=== PATIENT | male | born 1980 | race Caucasian/White ===

== ENCOUNTER 2024-02-02 09:07 | Emergency (ER) | payer SELFPAY ==
[~2024-02-02] VITALS: Ht 180.3 cm; Wt 99.5 kg
[2024-02-02 10:50] LABS: BASOPHILS % (AUTO) 0.3 % (0-1); EOSINOPHILS # (AUTO) 0.1 X10'3 (0-0.9); HEMATOCRIT 50.3 % (42.0-52.0); HEMOGLOBIN 17.3 g/dl (14.0-17.9); LYMPHOCYTES # (AUTO) 1.5 X10'3 (1.1-4.8); MEAN CORPUSCULAR HEMOGLOBIN 30.7 PG (27.0-31.0); MEAN CORPUSCULAR HGB CONC 34.4 g/dL (33.0-36.5); MEAN CORPUSCULAR VOLUME 89.4 FL (78-98); MEAN PLATELET VOLUME 9.7 FL (7.4-10.4); MONOCYTES # (AUTO) 1.1 X10'3 (0-0.9); MONOCYTES % (AUTO) 11.7 % (2-12); PLATELET COUNT 139 X10'3 (140-440); RED BLOOD COUNT 5.62 X10'6 (4.70-6.10); RED CELL DISTRIBUTION WIDTH 13.4 % (11.5-14.5); WHITE BLOOD COUNT 9.7 X10'3 (4.5-11.0)
[2024-02-02 10:56] LABS: BILIRUBIN,URINE SMALL (Neg); CLARITY,URINE SLIGHTLY CLOUDY (Clear); COLOR,URINE YELLOW (Yellow); GLUCOSE, URINE NEGATIVE (Neg); KETONES,URINE 15 mg/dl (Neg); LEUKOCYTE ESTERASE ,URINE NEGATIVE (Neg); NITRITES, URINE NEGATIVE (Neg); OCCULT BLOOD,URINE SMALL (Neg); PROTEIN,URINE 30 mg/dl (Neg); UROBILINOGEN,URINE 0.2 E.U/dL (0.2-1.0)
[2024-02-02 11:05] LABS: UA COLLECTION TYPE VOIDED
[2024-02-02 11:06] LABS: MUCUS STRANDS MANY /LPF (Neg); SQUAMOUS EPITHELIAL CELL,UR NONE SEEN /LPF (FEW); WBC,URINE 0-4 /HPF (0-4)
[2024-02-02 11:07] LABS: BACTERIA,URINE NONE SEEN /HPF (Neg); RBC,URINE 0-2 /HPF (0-2)
[2024-02-02 11:10] LABS: ALANINE AMINOTRANSFERASE 44 U/L (12-78); ALBUMIN 3.7 G/DL (3.4-5.0); ALBUMIN/GLOBULIN RATIO 0.9 (1.1-1.5); ALKALINE PHOSPHATASE 79 IU/L (46-116); ANION GAP 9 (8-16); ASPARTATE AMINO TRANSFERASE 33 U/L (10-37); BILIRUBIN,TOTAL 0.4 MG/DL (0.1-1.0); BLOOD UREA NITROGEN 12 MG/DL (7-18); BUN/CREATININE RATIO 9.4 (10.0-20.0); CALCIUM 8.9 MG/DL (8.5-10.1); CHLORIDE 103 MMOL/L (99-107); CREATININE 1.28 MG/DL (0.60-1.10); GLUCOSE 117 MG/DL (70-104); POTASSIUM 3.8 MMOL/L (3.5-5.1); SODIUM 139 MMOL/L (135-145); TOTAL CARBON DIOXIDE 26.8 MMOL/L (24-32); eCRCL 81 ML/MIN; eGFR 62 ML/MIN
[2024-02-02] MEDS ORDERED: iohexol 300mg/ml 100ml inj. ONE (11:24)
[2024-02-02] MEDS: normal saline 1000ML IV soln IVB ONE (11:52)
[2024-02-02] MEDS: normal saline 1000ml 1,000 ML IV ONE (13:03)
[2024-02-02 13:22] LABS: C DIFF SPECIMEN=DIARRHEA? ACCEPTABLE
[2024-02-02 13:24] LABS: C DIFF ANTIGEN POSITIVE (NEGATIVE); C DIFFICILE TOXINS A&B POSITIVE (Neg)
[2024-02-02] MEDS ORDERED: VANC125C11 PO (13:35)
[2024-02-02] MEDS ORDERED: ONDA8TAB13 PO (13:35)
[2024-02-02 14:01] VITALS: BP 132/78; PULSE 78; RESP 17; TEMP 97.8; O2SAT 99
== END 2024-02-02 14:03 | disposition home or self-care (01) ==
LOC: ER 09:07
DX: A04.72 Enterocolitis due to Clostridium difficile, not specified as recurrent (principal); Z79.2 Long term (current) use of antibiotics; Z79.899 Other long term (current) drug therapy
CPT/HCPCS: 36415; 74177; 80053; 81001; 85025; 87045; 87046; 87077; 87186; 87324; 87449; 99285; J3490; J7030; Q9967

== ENCOUNTER 2025-07-10 11:33 | Emergency (ER) | payer MEDICAID ==
[~2025-07-10] VITALS: Ht 180.3 cm; Wt 104.1 kg
[~2025-07-10 11:33] MED LIST: ONDA-245 PO; VANC125C11 PO
[2025-07-10 11:40] VITALS: BP 148/81; PULSE 77; RESP 16; TEMP 98.7; O2SAT 97
[2025-07-10 12:42] LABS: STREP A SCREEN NEGATIVE (Neg)
[2025-07-10] MEDS ORDERED: AMOX500C2 PO (13:00)
--- NOTE | 2025-07-10 13:01 | Physician Documentation ---
History of Present Illness ~ Chief Complaint: Sore Throat Stated Complaint: SORE THROAT Time Seen by MD: 12:40 HPI 45 Year old male presents with a complaint of sore throat painful swallowing. Denies any cough denies any fever. Symptoms have for persisted the last 2-3 days Day of Onset: Jul 10, 2025 Medication Reconciliation Allergies: Coded Allergies: No Known Allergies (Unverified , 02/02/24) Scheduled Amoxicillin Trihydrate* (Amoxicillin*), 1 CAP PO Q8H Vancomycin HCl (Vancocin HCl), 1 CAP PO Q6H Scheduled PRN Ondansetron 8mg ODT (Ondansetron Odt), 1 TAB PO TID PRN for nausea Review of Systems All Other Systems at this time: Reviewed and Negative ROS As stated above in the HPI, otherwise all systems are reviewed and negative. Physical Exam Vital Signs: Temperature: 98.7, Source: Oral, Heart Rate: 77, Respiratory Rate: 16, BP: 148/81, Pulse Oximetry: 97, Weight: 104.100 Oxygen Flow Rate: 0 Physical Exam General: Alert, no apparent distress. HEENT: PERRL, EOMI, no injection, moist mucous membranes. b/l tonsilar exudate w/erythema Neck: Full range of motion. Respiratory: Lungs clear, no respiratory distress. Neurologic: Oriented x4. Psychiatric: Normal mood and affect. Skin: Normal color, warm and dry. No edema, no ecchymosis. Progress Results/Orders Results/Orders Completed Orders - JACK LOPEZ HOME ATTENDANT Amoxicillin Capsule (Trimox Capsule) (07/10/25 13:10) Dexamethasone Inj (Decadron 10mg/Ml Inj) (07/10/25 13:08) Medications Received in ER Medications (Trade) Dose Ordered Sig/Vi Route PRN Reason Start Time Stop Time Status Last Admin Dose Admin (Trimox capsule) 500 mg ONCE ONCE PO 07/10/25 13:10 07/10/25 13:11 DC 07/10/25 13:21 500 MG (Decadron 10mg/ ml inj) 10 mg ONCE STAT PO 07/10/25 13:08 07/10/25 13:09 DC 07/10/25 13:21 10 MG Vital Signs 07/10/25 11:40 Temp 98.7 Pulse 77 Resp 16 B/P (MAP) 148/81 Pulse Ox 97 O2 Flow Rate 0 Laboratory Tests Test 07/10/25 11:43 Group A Streptococcus Rapid Negative Medical Decision Making Findings Reason this patient's strep swab came back negative. Based on my physical exam meets all criteria for a positive strep throat. Gross evidence tonsillar exudate Departure Disposition: HOME / SELF CARE / HOMELESS Impression: Primary Impression: Sore throat Additional Impression: Strep throat Discharge Instructions: Strep Throat, Adult Referrals: NO PRIMARY CARE PROVIDER (PCP) Prescriptions Amoxicillin Trihydrate* (Amoxicillin*) 500 Mg Capsule 1 CAP PO Q8H for 10 Days, #30 CAP Prov: JACK LOPEZ NP 07/10/25 Signature Scribe Signature: g Attestation: Scribed for Jack Lopez Assistant Professor Of Sociology by Jack Lopez - JAIRO . 07/10/25 13:01 JACK LOPEZ NP Jul 10, 2025 13:01
[2025-07-10] MEDS: dexamethasone sod phosphate 10mg/ml inj PO STA (13:21)
== END 2025-07-10 13:27 | disposition home or self-care (01) ==
LOC: ER 11:33
DX: J02.0 Streptococcal pharyngitis (principal)
CPT/HCPCS: 87081; 87880; 99283; J1100

== ENCOUNTER 2025-09-07 07:04 | Emergency (ER) | payer OTHER, MEDICAID ==
[~2025-09-07] VITALS: Ht 180.3 cm; Wt 98.0 kg
[2025-09-07 07:27] VITALS: BP 125/83; PULSE 71; RESP 15; TEMP 98; O2SAT 99
--- NOTE | 2025-09-07 07:55 | Physician Documentation ---
History of Present Illness ~ Chief Complaint: Shoulder pain Stated Complaint: L SHOULDER PAIN Time Seen by MD: 07:28 HPI 45 year old male with several months of L shoulder pain. No specific injury but he does work out and lift weights regularly and has had difficulty doing o verhead presses with weight. Tetanus within 5 years?: Yes Medication Reconciliation Allergies: Coded Allergies: No Known Allergies (Unverified , 09/07/25) Scheduled Vancomycin HCl (Vancocin HCl), 1 CAP PO Q6H Scheduled PRN Ondansetron 8mg ODT (Ondansetron Odt), 1 TAB PO TID PRN for nausea Review of Systems All Other Systems at this time: Reviewed and Negative Physical Exam Vital Signs: RN Vital Signs have been reviewed: Yes, Temperature: 98.0, Source: Oral, Heart Rate: 71, Respiratory Rate: 15, BP: 125/83, Pulse Oximetry: 99, Weight: 98.000 Physical Exam Gen: no distress HEENT: PERRL, EOMI no neck or facial swelling, uvula midline Pulm: normal WOB, no distress Cardiac: deferred Abd: deferred Skin: w/d/i MSK: no deformity; + empty can sign Neuro: nonfocal Psych: normal affect Progress Results/Orders Results/Orders Orders - SAV OWUSU MD Shoulder, Complete (Min 2 Vws) (09/07/25 07:28) Completed Orders - SAV OWUSU MD Shoulder, Complete (Min 2 Vws) (09/07/25 07:28) Vital Signs 09/07/25 09/07/25 07:07 07:27 Temp 96.8 98.0 Pulse 78 71 Resp 15 15 B/P (MAP) 173/97 125/83 (97) Pulse Ox 98 99 Medical Decision Making Additional information obtaine: N/A Findings 45 year old male with apparent overuse injury of L shoulder. Xray interpreted by me demonstrated normal contours, no fracture or dislocation. Counseled no overhead exercises or lifting, NSAIDS, return precautions. Differential Dx:Considerations: Include: AC separation, Adhesive capsulitis, arthritis, Bicipital tendonitis, Calcific tendonitis, Rotator cuff injury, Sprain, Subacromial bursitis Departure Disposition: 01 HOME / SELF CARE / HOMELESS Impression: Primary Impression: Tendinitis of shoulder Condition: Stable Discharge Instructions: Shoulder Pain, [id number] Referrals: NO PRIMARY CARE PROVIDER (PCP) Education Educated: Patient Educated regarding: diagnosis, treatment, prognosis, need for follow up Signature Scribe Signature: . Attestation: . SAV OWUSU MD Sep 07, 2025 07:55
--- NOTE | 2025-09-07 08:01 | RADIOLOGY REPORT ---
EXAM: DI SHOULDER, COMPLETE (MIN 2 VWS) HISTORY: pain LEFT SHOULDER COMPARISON: CT CT ABDOMEN PELVIS on DOS: 02/02/24 TECHNIQUE: 2 views of the left shoulder were obtained. FINDINGS: No evidence of acute fracture or dislocation. There is mild cortical lucency on both sides of the acromioclavicular joint without significant widening. There is an osteophytes along the distal clavicle.. IMPRESSION: 1. No acute fracture or dislocation. 2. Mild cortical lucency on both sides of the acromioclavicular joint without significant widening. This could be related to chronic changes or low-grade AC joint injury.
== END 2025-09-07 08:15 | disposition home or self-care (01) ==
LOC: ER 07:05
DX: M77.8 Other enthesopathies, not elsewhere classified (principal); M25.512 Pain in left shoulder
CPT/HCPCS: 73030; 99283

== ENCOUNTER 2025-09-14 20:29 | Emergency (ER) | payer OTHER, MEDICAID ==
[~2025-09-14] VITALS: Ht 180.3 cm; Wt 100.0 kg
--- NOTE | 2025-09-14 20:48 | ELECTROCARDIOGRAPH REPORT ---
[facility] Test Date: 2025-09-14 Test Time: 20:47:00 Pat Name: CASEY DELA CRUZ Department: EMERGENCY ROOM Room: Gender: M [employer] Grade Teacher: : 1980 Requested By: JERILYN CISNEROS Order Number: [id number] Reading MD: Dr. KERA Blackwell Measurements Intervals [place] Rate: 84 P: 55 SC: 169 QRS: 48 QRSD: 93 T: 36 QT: 392 QTc: 464 Interpretive Statements Sinus rhythm Electronically Signed On 09-16-2025 15:16:[address] KERA Blackwell Please click the below link to view image of tracing.
[2025-09-14 21:01] LABS: MEAN PLATELET VOLUME 9.5 FL (7.4-10.4); RED CELL DISTRIBUTION WIDTH 12.8 % (11.5-14.5)
--- NOTE | 2025-09-14 21:22 | RADIOLOGY REPORT ---
CHEST RADIOGRAPH Indication: CP Technique: 1 view Comparison: None FINDINGS: Lines and Tubes: None. Lungs/Pleura: No focal consolidation, pleural effusion or pneumothorax. Cardiomediastinum: Unremarkable. Other: No acute osseous abnormality. IMPRESSION: 1. No acute cardiopulmonary abnormality.
[2025-09-14 21:26] LABS: CREATININE 1.19 MG/DL (0.60-1.10); PRO BRAIN NATRIURETIC PEPTIDE < 30 PG/ML (0-125); TOTAL CARBON DIOXIDE 28.3 MMOL/L (24-32); eCRCL 85 ML/MIN; eGFR 67 ML/MIN
--- NOTE | 2025-09-14 23:38 | Physician Documentation ---
History of Present Illness ~ Chief Complaint: Chest Pain Stated Complaint: UPPER BACK PAIN HPI Very pleasant 45-year-old male that presents to the emergency department for back pain x1 week and concern for burning chest pain intermittently today. Reports he is not sure if he develop chest pain because his back hurts. Patient reports he had an episode of the cervix 6 months ago. Patient reports his he has had intermittent back pain for the last 6 days. Patient reports that he believes he is stressing himself out because he was concerned that he may have something wrong with his heart and just wants to have it checked out. Patient fever chills nausea vomiting chest pain that radiates diaphoresis syncope numbness tingling shortness of breath or any other symptoms at this time. Medication Reconciliation Allergies: Coded Allergies: No Known Allergies (Unverified , 09/07/25) Scheduled Vancomycin HCl (Vancocin HCl), 1 CAP PO Q6H Scheduled PRN Ondansetron 8mg ODT (Ondansetron Odt), 1 TAB PO TID PRN for nausea Review of Systems ROS As stated above in the HPI, otherwise all systems are reviewed and negative. Physical Exam Vital Signs: Temperature: 97.5, Source: Temporal, Heart Rate: 80, Respiratory Rate: 16, BP: 139/79, Pulse Oximetry: 100, Weight: 100.000 Oxygen Flow Rate: 0 Physical Exam VITALS: Reviewed and as above. GENERAL: Alert, no apparent distress. HEENT: Normocephalic, atraumatic, PERRL, EOMI, dry mucosa, no erythema RESPIRATORY: Lungs clear, normal breath sounds, no respiratory distress. CHEST: No accessory muscle use, no retractions CV: Regular rate, rhythm, no edema, no murmur, No: JVD GI: Soft, non-tender, bowels sounds present, no rebound, guarding, or rigidity BACK: No CVA tenderness, or swelling MUSCULOSKELETAL No deformities, no edema SKIN: Warm and dry, no rash NEURO: Oriented x4, No motor or sensory deficit PSYCH: Normal mood and affect, no agitation Progress Results/Orders Results/Orders Vital Signs 09/14/25 20:37 Temp 97.5 Pulse 80 Resp 16 B/P (MAP) 139/79 Pulse Ox 100 O2 Flow Rate 0 Laboratory Tests Test 09/14/25 20:46 09/14/25 22:51 White Blood Count 8.9 Red Blood Count 4.93 Hemoglobin 15.2 Hematocrit 43.4 Mean Corpuscular Volume 88.0 Mean Corpuscular Hemoglobin 30.8 Mean Corpuscular Hemoglobin Concent 35.0 Red Cell Distribution Width 12.8 Platelet Count 184 Mean Platelet Volume 9.5 Neutrophils (%) (Auto) 50.2 Lymphocytes (%) (Auto) 35.0 Monocytes (%) (Auto) 8.9 Eosinophils (%) (Auto) 5.3 Basophils (%) (Auto) 0.6 Neutrophils # (Auto) 4.5 Lymphocytes # (Auto) 3.1 Monocytes # (Auto) 0.8 Eosinophils # (Auto) 0.5 Basophils # (Auto) 0.0 CBC Comment Sodium Level 144 Potassium Level 4.0 Chloride Level 106 Carbon Dioxide Level 28.3 Anion Gap 10 Blood Urea Nitrogen 24 H Creatinine 1.19 H Estimated GFR/1.73 m2 67 BUN/Creatinine Ratio 20.2 H Glucose Level 99 Calcium Level 8.8 Troponin I High Sensitivity 8 8 Pro-B-Type Natriuretic Peptide < 30 Albumin 4.2 Chemistry Comments Troponin I High Sens Percent Delta 0 Troponin I Hi Sens Absolute Change 0 Medical Decision Making Additional information obtaine: other Findings 45-year-old male presented with back pain for one week and intermittent burning chest pain today. Chest pain was non-radiating, not associated with exertion, diaphoresis, syncope, or other concerning symptoms. Patient expressed anxiety regarding cardiac etiology but denied fever, chills, nausea, vomiting, shortness of breath, or neurological deficits. ED evaluation included: ECGs: No ischemic changes. High-sensitivity troponin: Below threshold for ACS. Chest X-ray: No acute findings. Laboratory studies: Unremarkable. Risk stratification: Using validated clinical decision pathways and high-sensitivity troponin, patient is low risk for ACS and 30-day major adverse cardiac events. No evidence of acute coronary syndrome, aortic dissection, pulmonary embolism, or other life-threatening etiologies. Noncardiac considerations: Musculoskeletal pain and psychosomatic factors (anxiety/stress) are likely contributors. No evidence for gastrointestinal or other secondary causes. Disposition: Patient is safe for discharge. Advised to follow up with primary care provider within 1430 days, or sooner if symptoms worsen or new symptoms develop. Return to ED for chest pain with new features (radiation, exertional, syncope, shortness of breath), or other concerning symptoms. Medical decision-making summary: All high-risk cardiac and noncardiac etiologies excluded. No indication for further inpatient testing or observation. Outpatient follow-up recommended for continued evaluation and management of musculoskeletal pain and anxiety, as appropriate. Patient education provided regarding warning signs and follow-up plan. Heart Score: 0 Differential Dx:Considerations: Include: angina, aortic dissection, chest wall pain, cholelithiasis, CHF, costochondritis, esophageal reflux/spasm, gastritis, herpes zoster, myocardial infarction, pericarditis, pleuritis, pancreatitis, pneumonia, pneumothorax, pulmonary embolus, other Departure Impression: Primary Impression: Chest wall pain Discharge Instructions: Chest Wall Pain Additional Instructions: 45-year-old male presented with back pain for one week and intermittent burning chest pain today. Chest pain was non-radiating, not associated with exertion, diaphoresis, syncope, or other concerning symptoms. Patient expressed anxiety regarding cardiac etiology but denied fever, chills, nausea, vomiting, shortness of breath, or neurological deficits. ED evaluation included: Serial ECGs: No ischemic changes. High-sensitivity troponin: Below threshold for ACS. Chest X-ray: No acute findings. Laboratory studies: Unremarkable. Risk stratification: Using validated clinical decision pathways and high-sensitivity troponin, patient is low risk for ACS and 30-day major adverse cardiac events. No evidence of acute coronary syndrome, aortic dissection, pulmonary embolism, or other life-threatening etiologies. Noncardiac considerations: Musculoskeletal pain and psychosomatic factors (anxiety/stress) are likely contributors. No evidence for gastrointestinal or other secondary causes. Disposition: Patient is safe for discharge. Advised to follow up with primary care provider within 1430 days, or sooner if symptoms worsen or new symptoms develop. Return to ED for chest pain with new features (radiation, exertional, syncope, shortness of breath), or other concerning symptoms. Medical decision-making summary: All high-risk cardiac and noncardiac etiologies excluded. No indication for further inpatient testing or observation. Outpatient follow-up recommended for continued evaluation and management of musculoskeletal pain and anxiety, as appropriate. Patient education provided regarding warning signs and follow-up plan. Referrals: NO PRIMARY CARE PROVIDER (PCP) Education Educated: Patient Educated regarding: diagnosis, treatment, need for follow up Signature Scribe Signature: A Attestation: Scribed for Emergency,Department by SANDRA Arroyo . 09/14/25 23:40 LISA BABINP Sep 14, 2025 23:38
[2025-09-14 23:45] VITALS: BP 119/75; PULSE 67; RESP 18; TEMP 97.5; O2SAT 97
== END 2025-09-14 23:46 | disposition home or self-care (01) ==
LOC: ER 20:30
DX: R07.89 Other chest pain (principal); R55 Syncope and collapse; R20.2 Paresthesia of skin; R06.02 Shortness of breath
CPT/HCPCS: 36415; 71045; 80048; 83880; 84484; 85025; 93005; 99285